=== PATIENT | male | born 1965 | race Caucasian/White ===

== ENCOUNTER 2023-07-18 10:30 | Emergency (ER) | payer OTHER ==
[~2023-07-18] VITALS: Ht 167.6 cm; Wt 77.1 kg
[2023-07-18 10:34] VITALS: BP 151/88; PULSE 62; RESP 20; TEMP 98.7; O2SAT 99
[2023-07-18 10:46] VITALS: O2SAT 99
[2023-07-18 11:39] LABS: HEMATOCRIT 20.6 % (36-52); MEAN CORPUSCULAR HEMOGLOBIN 31 pg (27-31); MEAN CORPUSCULAR HGB CONC 34 g/dL (33-37); MEAN CORPUSCULAR VOLUME 92.1 fL (80-94); PLATELET COUNT (AUTO) 124 K/uL (140-450); RED BLOOD CELL COUNT(AUTO) 2.24 MIL/uL (4.20-6.10); RED CELL DISTRIBUTION WIDTH 14.1 % (11.6-13.7)
[2023-07-18 11:49] LABS: WHITE BLOOD COUNT (AUTO) 1.2 K/uL (4.8-10.8)
[2023-07-18 11:51] LABS: ANION GAP 12.9 (8-16); CALCIUM 9.1 mg/dL (8.5-10.1); CARBON DIOXIDE 21.5 mmol/L (21-32); POTASSIUM 4.4 mmol/L (3.5-5.1)
[2023-07-18] MEDS: MORPHINE SULFATE 4 MG/ML SYR IVP ONE ×3 (11:52→16:34)
[2023-07-18] MEDS: ONDANSETRON 4 MG/2 ML VIAL IVP ONE (11:52)
[2023-07-18 11:55] LABS: BILIRUBIN,DIRECT 0.1 mg/dL (0.0-0.3); TOTAL BILIRUBIN 0.3 mg/dL (0.0-1.0); TOTAL PROTEIN, SERUM 6.7 g/dL (6.4-8.2)
[2023-07-18 12:03] LABS: FLU A ANTIGEN negative (NEGATIVE); FLU B ANTIGEN negative (NEGATIVE)
[2023-07-18 12:12] LABS: LYMPHOCYTES % (MANUAL) 32 % (20-46)
[2023-07-18 12:13] LABS: EOSINOPHILS % (MANUAL) 7 % (0-4); MONOCYTES % (MANUAL) 12 % (5-12)
[2023-07-18] MEDS ORDERED: MORPHINE SULFATE 4 MG/ML SYR ONE (13:25)
[2023-07-18 14:21] LABS: INR 1.05 (0.8-1.2)
[2023-07-18 16:43] VITALS: BP 142/69; PULSE 67; RESP 15; TEMP 97.8; O2SAT 99
== END 2023-07-18 16:39 | disposition short-term general hospital (02) ==
LOC: MED 10:30
DX: K68.3 Retroperitoneal hematoma (principal); Z20.822 Contact with and (suspected) exposure to COVID-19; D64.9 Anemia, unspecified; N17.9 Acute kidney failure, unspecified; Z94.0 Kidney transplant status; Z79.899 Other long term (current) drug therapy; Z79.1 Long term (current) use of non-steroidal anti-inflammatories (NSAID)
CPT/HCPCS: 36415; 36430; 74176; 80048; 80076; 83605; 83690; 85025; 85610; 85730; 86886; 86900; 86901; 86920; 87040; 87426; 87804; 93005; 93976; 96374; 96375; 96376; 99291; J2270; J2405; P9016; Q0092